=== PATIENT | female | born 1940 | race Caucasian/White ===

== ENCOUNTER 2016-09-18 14:12 | Emergency (ER) | payer MEDICARE, BC ==
--- NOTE | ~2016-09-18 | CT71 ---
[facility] A Service [facility] RADIOLOGY TEXT RESULTS PATIENT: PACO GURROLA LOCATION: [place] : 38 UNIT #: [id number] AGE: [address]: Mary Kate Baum MD SEX: F ORDER DR: [id number] [facility] [address], [place] [address] [id number] MR#: [id number] Acc #: [id number] NAME: PACO GURROLA : 1940 SEX: F STUDY DATE/TIME: 09/18/2016 15:29 UNIT: [facility] ROOM: STUDY DESCRIPTION: CT Head Wo Contrast Attending Physician: Mary Kate Baum M.D. Ordering Physician: Mary Kate Baum M.D. Primary Care Physician: Asmita Govea M.D. MEDICAL IMAGING REPORT This report is preliminary unless electronic signature is present EXAM Head CT no contrast 09/18/2016 PROCEDURE Axial unenhanced head CT. This CT exam was performed with one or more of the following radiation dose reduction techniques: automatic exposure control, adjustment of mA and/or kV according to patient size, and iterative reconstruction. COMPARISON STUDIES None CLINICAL HISTORY Fell and struck head today. Left facial/forehead bruising and swelling. FINDINGS The skull base and calvarium are normal. There is a left frontal scalp subcutaneous hematoma but there is no evidence of intracranial injury. Brain parenchymal density is normal. There is no intracranial hemorrhage or hydrocephalus or extraaxial fluid collection. IMPRESSION Left frontal scalp soft tissue swelling. Otherwise normal. Dictated by... Mason Gould M.D. THIS IS AN ELECTRONICALLY VERIFIED REPORT Mason Gould M.D. at 09/19/2016 10:47 PM SUNITA/ruth ann [facility] A [facility] RADIOLOGY TEXT RESULTS PATIENT: PACO GURROLA LOCATION: [facility] : 38 UNIT #: [id number] AGE: [address]: Mary Kate Baum MD SEX: F ORDER DR: TD: 09/18/2016 18:24 JOB #: [id number] MEDICAL IMAGING REPORT Page 1 of 1 COPY
--- NOTE | ~2016-09-18 | CR169 ---
[facility] A Service of [facility] & [facility] RADIOLOGY TEXT RESULTS PATIENT: PACO GURROLA LOCATION: [facility] : 39 UNIT #: [id number] AGE: [address]: Mary Kate Baum MD SEX: F ORDER DR: [id number] [facility] [address] [place], [place] [address] [id number] E MR#: [id number] Acc #: [id number] NAME: PACO GURROLA. : 1940 SEX: F STUDY DATE/TIME: 09/18/2016 1458 UNIT: [facility] ROOM: STUDY DESCRIPTION: CR Knee 2 Views Lt Attending Physician: Mary Kate Baum M.D. Ordering Physician: Mary Kate Baum M.D. Primary Care Physician: Asmita Govea M.D. MEDICAL IMAGING REPORT This report is preliminary unless electronic signature is present EXAM Left knee 2 views 09/18/2016 1458 hours HISTORY Patient tripped over dog leash and fell today, left knee pain, history of left knee replacement. COMPARISON None. FINDINGS AP and cross-table lateral views demonstrate no joint effusion or fracture. Patient is postop total knee replacement with no fracture or hardware failure. IMPRESSION No joint effusion or fracture. Postop change total knee replacement with no hardware failure. Dictated by... Nancy Alberto M.D. THIS IS AN ELECTRONICALLY VERIFIED REPORT Nancy Alberto M.D. at 09/21/2016 9:07 AM Adams TD: 09/18/2016 16:55 JOB #: [id number] MEDICAL IMAGING REPORT Page 1 of 1 COPY
[~2016-09-18 14:12] MED LIST: AMITRIPTYLINE H50 MG PO; AMITRYPTYLINE PO; CARAFATE1 G PO; CRESTOR PO; CRESTOR10 MG PO; DOXYCYCLINE PO; FLAGYL PO; LISINOPRIL PO; MIRALAX17 GM PO; MULTI VITAMIN1 EACH PO; NEURONTIN300 MG PO; PRINIVIL40 MG PO; ULTRAM PO; ZOLOFT50 MG PO
== END 2016-09-18 16:40 | disposition home or self-care (01) ==
LOC: CED 14:12
DX: S00.93XA Contusion of unspecified part of head, initial encounter (principal); S80.02XA Contusion of left knee, initial encounter; W01.0XXA Fall on same level from slipping, tripping and stumbling without subsequent striking against object, initial encounter; Y92.9 Unspecified place or not applicable; Z23 Encounter for immunization
CPT/HCPCS: 70450; 73560; 90471; 90715; 99284